=== PATIENT | female | born 1950 | race Caucasian/White ===

== ENCOUNTER 2016-11-28 12:26 | Emergency (ER) | payer OTHER, BC ==
[~2016-11-28] VITALS: Ht 157.5 cm; Wt 74.0 kg
[~2016-11-28 12:26] MED LIST: ACCUNEB1.25 MG/3 IH; ADVAIR 250/501 DISK IH; AMBIEN10 MG; CHEST CONGESTI400 MG PO; ELAVIL75 MG PO; NEXIUM40 MG PO; PHENERGAN-CODE120 ML PO; PREDNISONE20 MG PO; RHINOCORT AQUA8.6 G1 NS; SIMVASTATIN20 MG PO; VICODIN 5-3001 EACH PO; ZESTORETIC,P1 TABLE1 PO; ZESTORETIC,P1 TABLET PO; ZITHROMAX Z-PA250 MG PO; ZOCOR20 MG PO; ZYRTEC10 MG PO
[2016-11-28 14:27] VITALS: BP 140/83
== END 2016-11-28 14:28 | disposition home or self-care (01) ==
LOC: EME 12:26
DX: G43.909 Migraine, unspecified, not intractable, without status migrainosus (principal); J45.909 Unspecified asthma, uncomplicated; E78.5 Hyperlipidemia, unspecified; I10 Essential (primary) hypertension
CPT/HCPCS: 99281; 99284; J1200; J1885; J2765; J7030